=== PATIENT | female | born 1975 | race Two or more races ===

== ENCOUNTER 2025-02-20 16:07 | Inpatient (IN) | payer OTHER, SELFPAY ==
[~2025-02-20] VITALS: Ht 165.1 cm; Wt 84.3 kg
--- NOTE | 2025-02-20 17:16 | DVH ---
EXAM: CT HEAD WITHOUT CONTRAST INDICATION: aloc TECHNIQUE: CT of the head without intravenous contrast. Radiation Dose : 1. Head: CT Dose: CTDI volume is 56.19 mGy. Dose-length product is 995.01 mGy*cm The dose indicators for CT are the volume Computed Tomography (CT) Dose Index (CTDIvol) and the Dose Length Product (DLP), and are measured in units of mGy and mGy-cm, respectively. These indicators are not patient dose, but values generated from the CT scanner acquisition factors. The report includes radiation exposure data for exposures received during this examination. COMPARISON: None FINDINGS: There is no evidence of acute intracranial hemorrhage, extra-axial collection, mass effect, midline s hift, herniation or hydrocephalus. The ventricles, sulci and cisterns are age appropriate. The silva-white differentiation is intact. Patchy periventricular and subcortical white matter hypoattenuation is nonspecific but may be related to small vessel ischemic disease. The visualized paranasal sinuses and mastoid air cells are clear. The surrounding soft tissues and osseous structures are unremarkable. IMPRESSION: 1. No acute intracranial abnormality. Radiation optimization: All CT scans at this facility use at least one of these dose optimization ciara hniques: automated exposure control mA and/or kV adjustment per patient size (includes targeted exam s where dose is matched to clinical indication) or iterative reconstruction.
--- NOTE | 2025-02-20 17:17 | DVH ---
CHEST RADIOGRAPH Indication: loc Technique: Single frontal view of the chest was obtained COMPARISON: None FINDINGS: Lines and Tubes: None Lungs: Clear Pleura: No effusion. No pneumothorax. Cardiomediastinal contours: Unremarkable Bones: Unremarkable IMPRESSION: 1. No acute disease.
[2025-02-20 17:25] LABS: Basophils # (auto) 0 10 ^3/uL (0-0.2); Basophils % (auto) 0.3 % (0.0-2.0); Eosinophils # (auto) 0 10 ^3/uL (0-0.8); Eosinophils % (auto) 0.3 % (0.0-7.0); Hematocrit 38.4 % (36.0-46.0); Hemoglobin 13.1 g/dL (12.2-16.2); Lymphocytes # (auto) 1.8 10 ^3/uL (0.4-5.4); Lymphocytes % (auto) 14.2 % (10.0-50.0); Mean Corpuscular Hemoglobin 31.3 pg (28.0-32.0); Mean Corpuscular Hgb Conc. 34.1 g/dL (32.0-36.0); Mean Corpuscular Volume 91.6 fL (80.0-100.0); Monocytes # (auto) 0.8 10 ^3/uL (0-1.3); Monocytes % (auto) 6.4 % (0.0-12.0); Neutrophils # (auto) 9.9 10 ^3/uL (1.6-8.6); Neutrophils % (auto) 78.8 % (37.0-80.0); Platelet Count (auto) 237 10^3/uL (140-450); Red Blood Cells 4.19 10^6/uL (4.0-5.20); Red Cell Distribution Width 12.9 % (11.8-14.3); White Blood Cell 12.6 10^3/uL (4.4-10.8)
[2025-02-20 17:35] LABS: Alanine Aminotransferase 25 U/L (7-40); Albumin 4.3 g/dL (3.2-4.8); Alkaline Phosphatase 77 U/L (46-116); Anion Gap 8 (5-15); Aspartate Aminotransferase 13 U/L (13-40); BUN/Creatinine Ratio 22.5 (10.0-20.0); Bilirubin, Total 0.5 mg/dL (0.2-1.0); Blood Urea Nitrogen 16 mg/dL (9-23); Calcium 9.6 mg/dL (8.7-10.4); Carbon Dioxide 29 mmol/L (20-31); Chloride 105 mmol/L (98-107); Glucose 117 mg/dL (74-106); Potassium 2.9 mmol/L (3.5-5.1); Sodium 142 mmol/L (136-145); Total Protein 7.4 g/dL (5.7-8.2)
--- NOTE | 2025-02-20 18:50 | ED.PDOC ---
History of Present Illness HPI Comments 49-year-old female brought in by EMS. Patient was picked up from house with altered level consciousness. Per he was family members that were present at home, patient was complaining of abdominal pain and went to the bathroom. Family had not heard from the patient was so they went to check in the bathroom and patient was unconscious on the floor. Patient does not remember what happened other than wake up in the back of the ambulance. Initial blood sugar was 43 by EMS. Oral glucose given then D5 given bring glucose up to the 190s. Upon arrival patient is A&O x4. States she did eat lunch at approximate 12:00 p.m., an egg. States no prior history of diabetes. States she was noticed some intermittent dizziness and fatigue over the last three or four days. No excessive thirst no excessive sweating. Chief Complaint: Abdominal Pain Time Seen by MD: 16:30 Reviewed Notes: Nurses Notes Allergies: Coded Allergies: NO KNOWN ALLERGIES (Unverified , 02/20/25) Information Source: Patient Mode of Arrival: EMS Past Medical History PAST MEDICAL HISTORY: Denies Surgical History: Denies all surgeries WEIGHER AND MIXER History: No Pertinent WEIGHER AND MIXER History Constitutional: reports: fatigue, weakness; denies: chills, diaphoresis, fever, malaise, sweats, others EENTM: denies: blurred vision, double vision, ear bleeding, ear discharge, ear drainage, ear pain, ear ringing, eye pain, eye redness, hearing loss, mouth pain, mouth swelling, nasal discharge, nose bleeding, nose congestion, nose pain, photophobia, tearing, throat pain, throat swelling, voice changes, others Respiratory: denies: cough, hemoptysis, orthopnea, SOB at rest, shortness of breath, SOB with excertion, stridor, wheezing, others Cardiovascular: denies: chest pain, dizzy spells, diaphoresis, Dyspnea on exertion, edema, irregular heart beat, left arm pain, lightheadedness, palpitations, PND, syncope, others Gastrointestinal: denies: abdomen distended, abdominal pain, blood streaked bowels, constipated, diarrhea, dysphagia, difficulty swallowing, hematemesis, melena, nausea, poor appetite, poor fluid intake, rectal bleeding, rectal pain, vomiting, others Genitourinary: denies: abnormal vagina bleeding, burning, dyspareunia, dysuria, flank pain, frequency, hematuria, incontinence, pain, , vagina discharge, urgency, others Neurological: denies: dizziness, fainting, headache, left sided numbness, left sided weakness, numbness, paresthesia, pre-existing deficit, right sided numbn ess, right sided weakness, seizure, speech problems, tingling, tremors, weakness, others Musculoskeletal: denies: back pain, gout, joint pain, joint swelling, muscle pain, muscle stiffness, neck pain, others Integumetry: denies: bruises, change in color, change in hair/nails, dryness, laceration, lesions, lumps, rash, wounds, others Allergic/Immunocompromised: denies: Difficulty Healing, Frequent Infections, Hives, Itching, others Hematologic/Lymphatic: denies: anemia, blood clots, easy bleeding, easy bruising, swollen glands, others Endocrine: denies: excessive hunger, excessive sweating, excessive thirst, excessive urination, flushing, intolerance to cold, intolerance to heat, unexplained weight gain, unexplained weight loss, others Unable to Obtain due to: Altered Mental Status Physical Exam General Appearance: No Apparent Distress, Normal HEENT: Normal ENT Inspection, Pharynx Normal, TMs Normal Neck: Full Range of Motion, Non-Tender, Normal, Normal Inspection Respiratory: Chest Non-Tender, Lungs Clear, No Accessory Muscle Use, No Respiratory Distress, Normal Breath Sounds Cardiovascular: No Edema, No JVD, No Murmur, No Gallop, Normal Peripheral Pulses, Regular Rate/Rhythm Breast Exam: Deferred Gastrointestinal: No Organomegaly, Non Tender, No Pulsatile Mass, Normal Bowel Sounds, Soft Genitalia: Deferred Pelvic: Deferred Rectal: Deferred Extremities: No calf tenderness, Normal capillary refill, Normal inspection, Normal range of motion, Non-tender, No pedal edema Musculoskeletal : Apperance: Normal Neurologic: Alert, retail pharmacist II-XII nml as Tested, No Motor Deficits, Normal Affect, Normal Mood, No Sensory Deficits Cerebellar Function: Normal Reflexes: Normal Skin: Dry, Normal Color, Warm Lymphatic: No Adenopathy Was a procedure done? Was a procedure done?: No Differential Dx Considerations may include: Hypoglycemic event, CVA, TIA, metabolic encephalopathy, urosepsis, X-Ray, Labs, Meds, VS Vital Signs Date Time Temp Pulse Resp B/P (MAP) Pulse Ox O2 Delivery O2 Flow Rate FiO2 02/20/25 16:12 98.6 77 18 121/78 (92) 91 98.6 Lab Test 02/20/25 17:06 Range/Units White Blood Count 12.6 H 4.4-10.8 10^3/uL Red Blood Count 4.19 4.0-5.20 10^6/uL Hemoglobin 13.1 12.2-16.2 g/dL Hematocrit 38.4 36.0-46.0 % Mean Corpuscular Volume 91.6 80.0-100.0 fL Mean Corpuscular Hemoglobin 31.3 28.0-32.0 pg Mean Corpuscular Hemoglobin Concent 34.1 32.0-36.0 g/dL Red Cell Distribution Width 12.9 11.8-14.3 % Platelet Count 237 140-450 10^3/uL Mean Platelet Volume 8.6 6.9-10.8 fL Neutrophils (%) (Auto) 78.8 37.0-80.0 % Lymphocytes (%) (Auto) 14.2 10.0-50.0 % Monocytes (%) (Auto) 6.4 0.0-12.0 % Eosinophils (%) (Auto) 0.3 0.0-7.0 % Basophils (%) (Auto) 0.3 0.0-2.0 % Neutrophils # (Auto) 9.9 H 1.6-8.6 10 ^3/uL Lymphocytes # (Auto) 1.8 0.4-5.4 10 ^3/uL Monocytes # (Auto) 0.8 0-1.3 10 ^3/uL Eosinophils # (Auto) 0 0-0.8 10 ^3/uL Basophils # (Auto) 0 0-0.2 10 ^3/uL Nucleated Red Blood Cells 0.0 % Sodium Level 142 136-145 mmol/L Potassium Level 2.9 L 3.5-5.1 mmol/L Chloride Level 105 98-107 mmol/L Carbon Dioxide Level 29 20-31 mmol/L Anion Gap 8 5-15 Blood Urea Nitrogen 16 9-23 mg/dL Creatinine 0.71 0.550-1.02 mg/dL Glomerular Filtration Rate Calc 105 >90 mL/min BUN/Creatinine Ratio 22.5 H 10.0-20.0 Serum Glucose 117 H 74-106 mg/dL Calcium Level 9.6 8.7-10.4 mg/dL Total Bilirubin 0.5 0.2-1.0 mg/dL Aspartate Amino Transferase (AST) 13 13-40 U/L Alanine Aminotransferase (ALT) 25 7-40 U/L Alkaline Phosphatase 77 46-116 U/L Ammonia < 10 L 11-32 umol/L Total Protein 7.4 5.7-8.2 g/dL Albumin 4.3 3.2-4.8 g/dL X-Ray, Labs, Meds, VS Comment Imaging: X-rays and CT scans were reviewed and interpreted by this provider, imaging shows no fractures and no pathological disease. Pending radiology review. Laboratory: Labs reviewed and interpreted by this provider. Patient was have elevated white count. Pending urinalysis, patient was not given a urine sample yet Concerns of possible urinary tract infection leading to changes in blood sugar Concerns of possible new onset DM type 2. Low sugar to be monitored she was 3 hours Patient given IV hydration Patient has prior medical visits reviewed. Med reconciliation performed Vital signs reviewed Time of 1ST Reevaluation: 18:50 Reevaluation 1ST: Unchanged Patient Education/Counseling: Diagnosis, Treatment Family Education/Counseling: Diagnosis Departure 1 Departure Time of Disposition: 18:47 Impression: Primary Impression: Hypoglycemic event due to diabetes Additional Impressions: Metabolic encephalopathy Generalized weakness Syncopal episodes Qualified Codes: R55 - Syncope and collapse Disposition: ADMITTED INPATIENT Condition: Stable Discharged With: Self Critical Care Note Critical Care Time?: No Stability Stability form required: No Heart Score Heart Score: Heart Score Response (Comments) Value History N/A 0 EKG N/A 0 Age N/A 0 Risk Factors N/A 0 Troponin N/A 0 Total 0 MARCO ANTONIO PYLE February 20, 2025 18:50
[2025-02-20 19:44] LABS: Urine Bacteria FEW /hpf (None Seen); Urine Blood Negative /uL (Negative); Urine Clarity Turbid (Clear); Urine Color Yellow (Yellow); Urine Mucus FEW (None Seen); Urine Protein, UAD TRACE (Negative); Urine Specific Gravity 1.025 (1.001-1.035); Urine Squamous Epithelial Cell FEW /hpf (<5); Urine Urobilinogen Normal (Negative); Urine WBC 22 /HPF (0-5); Urine pH 5.5 (5.0-9.0)
[2025-02-20 19:53] LABS: Opiate Scree,Urine Neg (NEGATIVE)
[2025-02-20 19:58] LABS: Amphetamine Screen, Urine Neg (NEGATIVE); Barbiturate Scree,Urine Neg (NEGATIVE); Benzodiazephine Screen, Urine Neg (NEGATIVE); Cannabinoid Screen, Urine Neg (NEGATIVE); Cocaine Screen, Urine Neg (NEGATIVE); Phencyclidine Screen, Urine Neg (NEGATIVE)
[2025-02-20] MEDS ORDERED: ONDANSETRON HCL 4 MG/2 ML VIAL IV PRN (21:00)
[2025-02-20] MEDS ORDERED: POTASSIUM CHLORIDE 40 MEQ, LIDOCAINE 1% (LOCAL ANESTH.) 4 ML in SODIUM CHL 0.9% 250 ML IV ONE (21:00)
[2025-02-20 21:56] LABS: Free T3 3.49 pg/mL (2.3-4.2); Free T4 (Free Thyroxine) 1.27 ng/dL (0.89-1.76)
[2025-02-20 22:10] VITALS: PULSE 67; RESP 13; O2SAT 100
[2025-02-20] MEDS ORDERED: DEXTROSE (50%) 50ML SYRG IV PRN (22:15)
[2025-02-20] MEDS: POTASSIUM EFFERVESENT TAB 25 MEQ PO ONE (22:51)
[2025-02-20 22:58] VITALS: BP 117/73; PULSE 63; RESP 16; TEMP 98.4; O2SAT 98
--- NOTE | 2025-02-20 23:33 | DVHHP2 ---
History of Present Illness Reason for Visit: hypoglycemia History of Present Illness This is a 49-year-old female with PMHx of lumbar discopathy (diagnosed 3 years ago), who presented to the ED after being found unresponsive in the bathroom today. According to the patient and her daughter, she had been feeling generally unwell with myalgias and fatigue since Wednesday of last week. She had also been experiencing worsening low back pain, for which she recently visited a chiropractor. She reports taking only Advil, turmeric, and omega-3 supplements. She denies any history of diabetes and denies taking any hypoglycemic agents or other medications. She was found by her brother slumped back on the toilet, unresponsive. EMS recorded capillary glucose in the 59 mg/dL range. She was given D10, after which her glucose brown to 190 mg/dL. She denies chest pain, palpitations, or recent weight loss. She did note mild abdominal discomfort before the syncopal episode. PMHx: Lumbar discopathy (diagnosed 3 years ago) No known diabetes or endocrine disorders Anxiety/depression: venlafaxine and trazodone were prescribed in nov 2024 PSHx: None reported Medications: Advil PRN [place]-3 supplements Turmeric (as prescribed by chiropractor) Allergies: No known drug allergies Social History: Lives with family Denies tobacco, alcohol, or illicit drug use LABS & IMAGING: Glucose: 59 mg/dL on arrival Potassium: 2.9 Urinalysis: Glucose 3+, otherwise unremarkable Toxicology screen: Negative Head CT: Normal Chest X-ray: Normal CBC: Mild leukocytosis Review of Systems Review of Systems Constitutional: Positive for fatigue, myalgias GI: Mild abdominal discomfort before episode Neuro: Denies prior similar episodes, no confusion post-event : Denies dysuria, hematuria Other systems negative Allergies: Coded Allergies: NO KNOWN ALLERGIES (Unverified , 02/20/25) Medications Current Medications Medications Dose Ordered Sig/Juan Route Start Time Stop Time Status Last Admin Dose Admin Acetaminophen 650 mg Q6HP PRN PO 02/20/25 21:00 Ondansetron HCl 4 mg Q4HP PRN IV 02/20/25 21:00 Dextrose 50 ml UD PRN IV 02/20/25 22:15 Exam Vital Signs Vital Signs Date Time Temp Pulse Resp B/P (MAP) Pulse Ox O2 Delivery O2 Flow Rate FiO2 5/6/25 22:10 98.2 67 13 113/70 (84) 100 98.2 02/20/25 22:10 Room Air* 0 21 Exam PHYSICAL EXAM: General: Alert, oriented x3, NAD HEENT: PERRLA, no signs of trauma Neck: Supple, no lymphadenopathy Cardiac: RRR, no murmurs Lungs: Clear to auscultation bilaterally Abdomen: Soft, nontender, no rebound or guarding Neuro: Nonfocal, CN II-XII grossly intact, no focal deficits Extremities: No edema, good capillary refill Skin: No rashes or lesions Labs/Xrays Labs Test 02/20/25 22:28 02/20/25 21:23 02/20/25 19:20 02/20/25 17:06 Range/Units POC Glucose 87 70-106 mg/dl Hemoglobin A1c 5.3 <5.7 % A1C Thyroid Stimulating Hormone (TSH) 1.68 0.55-4.78 uIU/mL Free Thyroxine (T4) Calculated 1.27 0.89-1.76 ng/dL Free Triiodothyronine (T3) pg/mL 3.49 2.3-4.2 pg/mL Plasma/Serum Blood Alcohol < 3.0 <10 mg/dL Urine Color Yellow Yellow Urine Clarity Turbid H Clear Urine pH 5.5 5.0-9.0 Urine Specific [place] 1.025 1.001-1.035 Urine Protein Trace H Negative Urine Ketones Negative Negative Urine Blood Negative Negative /uL Urine Nitrite Negative Negative Urine Bilirubin Negative Negative Urine Urobilinogen Normal Negative mg/dL Urine Leukocyte Esterase Negative Negative /uL Urine RBC 1 0 - 4 /hpf Urine Microscopic WBC 22 H 0-5 /HPF Urine Squamous Epithelial Cells Few <5 /hpf Urine Calcium Oxalate Crystals Few None Seen Urine Bacteria Few H None Seen /hpf Urine Mucus Few None Seen Urine Glucose 3+ H Normal mg/dL Urine Opiates Screen Neg NEGATIVE Urine Fentanyl Screen Neg NEGATIVE Urine Barbiturates Screen Neg NEGATIVE Urine Phencyclidine Screen Neg NEGATIVE Urine Amphetamines Screen Neg NEGATIVE Urine Benzodiazepines Screen Neg NEGATIVE Urine Cocaine Screen Neg NEGATIVE Urine Cannabinoids Screen Neg NEGATIVE White Blood Count 12.6 H 4.4-10.8 10^3/uL Red Blood Count 4.19 4.0-5.20 10^6/uL Hemoglobin 13.1 12.2-16.2 g/dL Hematocrit 38.4 36.0-46.0 % Mean Corpuscular Volume 91.6 80.0-100.0 fL Mean Corpuscular Hemoglobin 31.3 28.0-32.0 pg Mean Corpuscular Hemoglobin Concent 34.1 32.0-36.0 g/dL Red Cell Distribution Width 12.9 11.8-14.3 % Platelet Count 237 140-450 10^3/uL Mean Platelet Volume 8.6 6.9-10.8 fL Neutrophils (%) (Auto) 78.8 37.0-80.0 % Lymphocytes (%) (Auto) 14.2 10.0-50.0 % Monocytes (%) (Auto) 6.4 0.0-12.0 % Eosinophils (%) (Auto) 0.3 0.0-7.0 % Basophils (%) (Auto) 0.3 0.0-2.0 % Neutrophils # (Auto) 9.9 H 1.6-8.6 10 ^3/uL Lymphocytes # (Auto) 1.8 0.4-5.4 10 ^3/uL Monocytes # (Auto) 0.8 0-1.3 10 ^3/uL Eosinophils # (Auto) 0 0-0.8 10 ^3/uL Basophils # (Auto) 0 0-0.2 10 ^3/uL Nucleated Red Blood Cells 0.0 % Sodium Level 142 136-145 mmol/L Potassium Level 2.9 L 3.5-5.1 mmol/L Chloride Level 105 98-107 mmol/L Carbon Dioxide Level 29 20-31 mmol/L Anion Gap 8 5-15 Blood Urea Nitrogen 16 9-23 mg/dL Creatinine 0.71 0.550-1.02 mg/dL Glomerular Filtration Rate Calc 105 >90 mL/min BUN/Creatinine Ratio 22.5 H 10.0-20.0 Serum Glucose 117 H 74-106 mg/dL Calcium Level 9.6 8.7-10.4 mg/dL Total Bilirubin 0.5 0.2-1.0 mg/dL Aspartate Amino Transferase (AST) 13 13-40 U/L Alanine Aminotransferase (ALT) 25 7-40 U/L Alkaline Phosphatase 77 46-116 U/L Ammonia < 10 L 11-32 umol/L Total Protein 7.4 5.7-8.2 g/dL Albumin 4.3 3.2-4.8 g/dL Assessment/Plan Assessment/Plan A 49-year-old female with no prior history of diabetes, presenting with an episode of hypoglycemia resulting in syncope. Workup notable for glucose in the 50s, hypokalemia, and glucosuria on UA despite no reported hyperglycemia or known diabetes. Head CT and chest X-ray were unremarkable. Negative tox screen. hba1c normal, pending c peptide, insulin and cortisol AM, normal thyroid function #Acute metabolic encephalopathy due to Hypoglycemia #Syncope due to Hypoglycemia #Adrenal insufficiency rule out #Incidental hypoglycemia (fasting or reactive) #Glucosuria #Leukocytosis #Hypokalemia Admit Med/surg Regular diet Dextrose IV PRN Potassium PO Pending c peptide, insulin and cortisol AM Case discussed with Dr Bonilla Full code Plan discussed with: Patient, Other My Orders Orders - JASPAL CHOUDHURY Procedure Category Date Status Time Admit ADMIT 02/20/25 Transmitted 20:50 Code Status CODE 02/20/25 Transmitted 20:50 Vital Signs BOGDAN 02/20/25 In Process 20:50 Review Orders With BOGDAN 02/20/25 In Process Adm.Md 20:50 Regular Diet DIET 02/21/25 Transmitted Breakfast Acetaminophen Tablet PHA 02/20/25 In Process (Tylenol Tablet) 21:00 Notify Md Of Changes BOGDAN 02/20/25 In Process From Base 20:50 Advance Directive BOGDAN 02/20/25 In Process 20:50 Patient Condition ORDERS 02/20/25 Transmitted 20:50 Allergies BOGDAN 02/20/25 In Process 20:50 Ondansetron Hcl PHA 02/20/25 In Process (Zofran) 21:00 Dextrose 50% Syringe PHA 02/20/25 In Process 22:15 Date of Service: February 20, 2025 Billing Provider: CARIE BONILLA MD Common Visit Codes: [id number] INP/OBS CARE (HIGH) Secondary Visit Codes: [id number] CARE PLAN 30 MINUTES JASPAL CHOUDHURY February 20, 2025 23:33
[2025-02-21] VITALS (9 sets, daily range): BP systolic 107–130; BP diastolic 63–93; PULSE 63–83; RESP 16–20; TEMP 97–98.7; O2SAT 93–100
[2025-02-21] MEDS ORDERED: DEXTROSE (50%) 50ML SYRG IV PRN (00:15)
[2025-02-21] MEDS: ACCU-CHEK COMFORT CURVE STRIP VI SCH (05:01)
[2025-02-21 06:17] LABS: Basophils # (auto) 0.1 10 ^3/uL (0-0.2); Basophils % (auto) 0.8 % (0.0-2.0); Eosinophils # (auto) 0.1 10 ^3/uL (0-0.8); Eosinophils % (auto) 0.8 % (0.0-7.0); Hematocrit 36.3 % (36.0-46.0); Hemoglobin 12.4 g/dL (12.2-16.2); Lymphocytes # (auto) 2.7 10 ^3/uL (0.4-5.4); Lymphocytes % (auto) 34.9 % (10.0-50.0); Mean Corpuscular Hemoglobin 30.9 pg (28.0-32.0); Mean Corpuscular Hgb Conc. 34.1 g/dL (32.0-36.0); Mean Corpuscular Volume 90.6 fL (80.0-100.0); Monocytes # (auto) 0.5 10 ^3/uL (0-1.3); Neutrophils # (auto) 4.4 10 ^3/uL (1.6-8.6); Neutrophils % (auto) 57.5 % (37.0-80.0); Nucleated Red Blood Cells % 0.1 %; Platelet Count (auto) 215 10^3/uL (140-450); Red Blood Cells 4.01 10^6/uL (4.0-5.20); Red Cell Distribution Width 13.3 % (11.8-14.3); White Blood Cell 7.6 10^3/uL (4.4-10.8)
[2025-02-21 06:26] LABS: Alanine Aminotransferase 22 U/L (7-40); Alkaline Phosphatase 63 U/L (46-116); Anion Gap 7 (5-15); BUN/Creatinine Ratio 16.9 (10.0-20.0); Blood Urea Nitrogen 10 mg/dL (9-23); Carbon Dioxide 27 mmol/L (20-31); Glucose 97 mg/dL (74-106); Sodium 142 mmol/L (136-145); Total Protein 6.7 g/dL (5.7-8.2)
[2025-02-21 06:27] LABS: Albumin 3.9 g/dL (3.2-4.8); Bilirubin, Total 0.6 mg/dL (0.2-1.0)
[2025-02-21 06:28] LABS: Aspartate Aminotransferase 11 U/L (13-40); Calcium 8.6 mg/dL (8.7-10.4); Chloride 108 mmol/L (98-107); Potassium 3.5 mmol/L (3.5-5.1)
[2025-02-21] MEDS: cefTRIAXone 1GM/50ML D5W 50 ML IV SCH (10:40)
--- NOTE | 2025-02-21 11:16 | DVHPNRES ---
Progress Note Date Seen: February 21, 2025 Resident Creating Document: WILL TEJEDA RESIDENT Medical Necessity Reason Pt with a Central, PICC or Fol: No Subjective Review of Systems Everardo Guthrie a 49-year-old female with PMHx of lumbar discopathy (diagnosed 3 years ago), who presented to the ED after being found unresponsive in the bathroom today. According to the patient and her daughter, she had been feeling generally unwell with myalgias and fatigue since Wednesday of last week. She had also been experiencing worsening low back pain, for which she recently visited a chiropractor. She reports taking only Advil, turmeric, and omega-3 supplements. She denies any history of diabetes and denies taking any hypoglycemic agents or other medications. She was found by her brother slumped back on the toilet, unresponsive. EMS recorded capillary glucose in the 59 mg/dL range. She was given D10, after which her glucose brown to 190 mg/dL. She denies chest pain, palpitations, or recent weight loss. She did note mild abdominal discomfort before the syncopal episode. PMH: Lumbar radiculopathy, anxiety, depression PSH: Denies Family history: Noncontributory Personal history: Lives with family. Denies smoking, alcohol and other drug abuse Allergies: No known allergies Home medications: Advil p.r.n., omega-3 supplements, turmeric Patient seen and examined at the bedside. Patient reported mild improvement in her symptoms, reported no new complaints at this point. Head CT showed no acute changes. Patient was kept on telemetry. Orthostatic vitals. Objective vital signs Vital Sign Date Time Temp Pulse Resp B/P (MAP) Pulse Ox O2 Delivery O2 Flow Rate FiO2 02/21/25 09:00 98.7 63 18 107/63 (78) 93 98.7 02/20/25 22:10 Room Air* 0 21 Total Intake and Output 02/20/25 02/20/25 02/21/25 15:00 23:00 07:00 Intake Total 100 ml Balance 100 ml medications Current Medications Medications Dose Ordered Sig/Juan Route Start Time Stop Time Status Last Admin Dose Admin Acetaminophen 650 mg Q6HP PRN PO 02/20/25 21:00 Ondansetron HCl 4 mg Q4HP PRN IV 02/20/25 21:00 Dextrose 50 ml UD PRN IV 02/20/25 22:15 Diagnostic Test (Pha) 1 strip Q6HR 02/21/25 04:00 02/21/25 05:01 1 STRIP Dextrose 50 ml UD PRN IV 02/21/25 00:15 Ceftriaxone Sodium 50 ml @ 100 mls/hr DAILY@09 IV 02/21/25 09:00 Examination Pt is lying on bed General Appearance: Alert, Oriented X3, Cooperative, Not in acute distress HEENT: Atraumatic, Mucous membranes moist/pink Respiratory: Clear to auscultation, Normal air movement, No added sounds Cardiovascular: Regular rate, Normal S1, Normal S2, No murmurs Abdominal: Active bowel sounds, Soft, no distention, no tenderness Extremities: No edema, Normal pulses, No tenderness/swelling Skin: No Significant rash, except past surgical scars Neuro: Normal speech, sensorimotor deficits none Psych/Mental Status: Mental status NL, Mood NL Nurse was there as sharperone during examination laboratory and microbiology Laboratory Tests 02/21/25 05:00 Test 02/21/25 05:00 Range/Units Serum Glucose 97 74-106 mg/dL Labs and/or images reviewed: Labs reviewed by me, Image(s) reviewed by me Problem List/Assessment/Plan Problem List/Assessment/Plan # Acute metabolic encephalopathy due to Hypoglycemia # Syncope due to Hypoglycemia # Adrenal insufficiency ruled out # Incidental hypoglycemia (fasting or reactive) # Glucosuria # Leukocytosis # Hypokalemia - Dextrose IV PRN - Potassium PO - Pending c peptide, insulin - telemetry - EKG - orthostatic vitals - UDS negative - head CT showed no acute changes # Acute complicated UTI - evident on urinalysis - ordered urine bacterial culture - currently giving Rocephin No GI or VTE PPX needed at this time Regular diet Goals of care discussed with the patient for more than 29 minutes: Full code status Case discussed with Dr. Mitchell, patient and nurse Plan discussed with: Patient My Orders My Orders Orders - WILL TEJEDA RESIDENT Procedure Category Date Status Time Ceftriaxone 1gm/50ml PHA 02/21/25 In Process D5w (Rocephin) 09:00 Transfer Orders XFER 02/21/25 Transmitted 10:58 Orthostatic Vital ORDERS 02/21/25 Transmitted Signs 10:58 Electrocardigram EKG 02/21/25 Logged 10:59 Date of Service: February 21, 2025 Billing Provider: MADHAVI DIAZ MD Common Visit Codes: [id number] INP/OBS CARE(HIGH) WILL TEJEDA RESIDENT February 21, 2025 11:16 MADHAVI DIAZ MD March 04, 2025 02:32
[2025-02-21] MEDS: SODIUM CHLORIDE 0.9% 1,000 ML IV ONE (20:37)
[2025-02-21] MEDS: ACETAMINOPHEN 325 MG TAB PO PRN (20:38)
[2025-02-22] VITALS (7 sets, daily range): BP systolic 103–120; BP diastolic 61–78; PULSE 65–75; RESP 17–20; TEMP 36.9; O2SAT 96–100
[2025-02-22] MEDS: POTASSIUM EFFERVESENT TAB 25 MEQ PO ONE (14:00)
--- NOTE | 2025-02-22 14:32 | DVHSR ---
APPROVED REPORT EXAM: Two-dimensional and M-mode echocardiogram with Doppler, color Doppler and Bubble Study. Blood Pressure: 118/78 mmHg INDICATION R/O structural heart disease RISK FACTORS Height: 5'5, Weight: 185 DIMENSIONS LVDd4.7 (3.8-5.7cm)LA (2D)5.1 (1.9-4.0cm)Aortic Root2.9 (2.0-3.7cm) LVDs3.3 (2.5-4.0cm)LA (MM) (1.9-4.0cm)Aortic Cusp Exc1.8 (1.5-2.0cm) EF (%) 55.0 (55-70%)Rt. Atrium3.1 (1.9-4.0cm)Asc. Aorta cm IVSd0.8 (0.7-1.1cm)RV (D)4.0 (1.8-2.4cm) PWd0.9 (0.7-1.1cm) Mitral Valve MitralMitral Stenosis E wave0.93m/sMV Mean GR.mmHg A wave0.75m/sMV Peak GR.mmHg E/A ratio1.22D MVAcm2 DECEL [id number] 1/2 Timems Aortic Valve Aortic ValveAortic Stenosis V10.98m/Ricardo Mean GR.5mmHg V21.43m/Ricardo Peak GR.8mmHg LVOT Diameter2.0 (1.8-2.4cm)Doppler AVA2.15cm2 Pulmonic Valve V21.13m/s Tricuspid Valve TR Velocity2.44m/s [id number] Other Information Technically limited study due to body habitus. W/ BUBBLE Conclusion lvef 60% by visual estimate normal rv function left atrium enlarged no severe valve abnormalities noted
--- NOTE | 2025-02-22 15:12 | ECG ---
[facility] Test Date: 2025-02-22 Test Time: 14:08:42 Pat Name: JASPAL NAQVI Department: Room: [facility]6T B Gender: F [employer]: : 1975 Requested By: WILL TEJEDA Order Number: [id number] Reading MD: Moise Ro Measurements Intervals [place] Rate: 67 P: 72 DE: 141 QRS: 68 QRSD: 99 T: 21 QT: 394 QTc: 416 Interpretive Statements Sinus rhythm Probable left ventricular hypertrophy Electronically Signed On 02-22-2025 20:09:39 PDT by Moise Ro Please click the below link to view image of tracing.
[2025-02-22] MEDS ORDERED: CEPH250C PO (16:00)
--- NOTE | 2025-02-22 16:02 | DVHDSRES ---
Discharge Summary Date of Admission Resident Creating Document: WILL TEJEDA RESIDENT February 20, 2025 at 20:50 Date of Discharge: February 22, 2025 Admitting Diagnosis Hypoglycemia Labs/Diagnostic Data: Laboratory Results Test 02/22/25 12:53 02/22/25 12:10 02/21/25 08:38 02/21/25 05:00 Troponin I High Sensitivity < 3 ng/L (</=34) POC Glucose 99 mg/dl (70-106) Cortisol AM Sample 13.54 ug/dL (5.27-22.45) White Blood Count 7.6 10^3/uL (4.4-10.8) Red Blood Count 4.01 10^6/uL (4.0-5.20) Hemoglobin 12.4 g/dL (12.2-16.2) Hematocrit 36.3 % (36.0-46.0) Mean Corpuscular Volume 90.6 fL (80.0-100.0) Mean Corpuscular Hemoglobin 30.9 pg (28.0-32.0) Mean Corpuscular Hemoglobin Concent 34.1 g/dL (32.0-36.0) Red Cell Distribution Width 13.3 % (11.8-14.3) Platelet Count 215 10^3/uL (140-450) Mean Platelet Volume 9.1 fL (6.9-10.8) Neutrophils (%) (Auto) 57.5 % (37.0-80.0) Lymphocytes (%) (Auto) 34.9 % (10.0-50.0) Monocytes (%) (Auto) 6.0 % (0.0-12.0) Eosinophils (%) (Auto) 0.8 % (0.0-7.0) Basophils (%) (Auto) 0.8 % (0.0-2.0) Neutrophils # (Auto) 4.4 10 ^3/uL (1.6-8.6) Lymphocytes # (Auto) 2.7 10 ^3/uL (0.4-5.4) Monocytes # (Auto) 0.5 10 ^3/uL (0-1.3) Eosinophils # (Auto) 0.1 10 ^3/uL (0-0.8) Basophils # (Auto) 0.1 10 ^3/uL (0-0.2) Nucleated Red Blood Cells 0.1 % Sodium Level 142 mmol/L (136-145) Potassium Level 3.5 mmol/L (3.5-5.1) Chloride Level 108 mmol/L (98-107) Carbon Dioxide Level 27 mmol/L (20-31) Anion Gap 7 (5-15) Blood Urea Nitrogen 10 mg/dL (9-23) Creatinine 0.59 mg/dL (0.550-1.02) Glomerular Filtration Rate Calc 112 mL/min (>90) BUN/Creatinine Ratio 16.9 (10.0-20.0) Serum Glucose 97 mg/dL (74-106) Calcium Level 8.6 mg/dL (8.7-10.4) Total Bilirubin 0.6 mg/dL (0.2-1.0) Aspartate Amino Transferase (AST) 11 U/L (13-40) Alanine Aminotransferase (ALT) 22 U/L (7-40) Alkaline Phosphatase 63 U/L (46-116) Total Protein 6.7 g/dL (5.7-8.2) Albumin 3.9 g/dL (3.2-4.8) Beta-Hydroxybutyric Acid 0.089 mmol/L (< 0.4) Test 02/20/25 21:23 02/20/25 19:20 02/20/25 17:06 Hemoglobin A1c 5.3 % A1C (<5.7) Insulin Level 8.6 uIU/mL (2.6-24.9) C-Peptide 2.2 ng/mL (1.1-4.4) Thyroid Stimulating Hormone (TSH) 1.68 uIU/mL (0.55-4.78) Free Thyroxine (T4) Calculated 1.27 ng/dL (0.89-1.76) Free Triiodothyronine (T3) pg/mL 3.49 pg/mL (2.3-4.2) Plasma/Serum Blood Alcohol < 3.0 mg/dL (<10) Urine Color Yellow (Yellow) Urine Clarity Turbid (Clear) Urine pH 5.5 (5.0-9.0) Urine Specific [place] 1.025 (1.001-1.035) Urine Protein Trace (Negative) Urine Ketones Negative (Negative) Urine Blood Negative /uL (Negative) Urine Nitrite Negative (Negative) Urine Bilirubin Negative (Negative) Urine Urobilinogen Normal mg/dL (Negative) Urine Leukocyte Esterase Negative /uL (Negative) Urine RBC 1 /hpf (0 - 4) Urine Microscopic WBC 22 /HPF (0-5) Urine Squamous Epithelial Cells Few /hpf (<5) Urine Calcium Oxalate Crystals Few (None Seen) Urine Bacteria Few /hpf (None Seen) Urine Mucus Few (None Seen) Urine Glucose 3+ mg/dL (Normal) Urine Opiates Screen Neg (NEGATIVE) Urine Fentanyl Screen Neg (NEGATIVE) Urine Barbiturates Screen Neg (NEGATIVE) Urine Phencyclidine Screen Neg (NEGATIVE) Urine Amphetamines Screen Neg (NEGATIVE) Urine Benzodiazepines Screen Neg (NEGATIVE) Urine Cocaine Screen Neg (NEGATIVE) Urine Cannabinoids Screen Neg (NEGATIVE) Ammonia < 10 umol/L (11-32) Other Laboratory Tests 02/21/25 05:00 Brief Hx & Hospital Course: Cher Guthrie Is a 49-year-old female with PMHx of lumbar discopathy (diagnosed 3 years ago), who presented to the ED after being found unresponsive in the bathroom today. According to the patient and her daughter, she had been feeling generally unwell with myalgias and fatigue since Wednesday of last week. She had also been experiencing worsening low back pain, for which she recently visited a chiropractor. She reports taking only Advil, turmeric, and omega-3 supplements. She denies any history of diabetes and denies taking any hypoglycemic agents or other medications. She was found by her brother slumped back on the toilet, unresponsive. EMS recorded capillary glucose in the 59 mg/dL range. She was given D10, after which her glucose brown to 190 mg/dL. She denies chest pain, palpitations, or recent weight loss. She did note mild abdominal discomfort before the syncopal episode. Patient required hospital admission for further evaluation and management of hypoglycemia and syncope. Her 2D echo other showed no acute changes. Patient was continuously monitored on telemetry. Orthostatic vitals negative, ordered certain labs like AM cotisol negative, C-peptide, insulin which is pending, UDS was negative. Patient was on dextrose IV. . Due to diuretic in bed especially present on potassium p.o.. Patient found to have UTI, started on Rocephin. Ordered echocardiogram which showed normal LVEF and no wall abnormalities. EKG showed no acute changes. Troponins were negative. patient condition was improved, hemodynamically stable and his condition to be discharged home. Patient was advice reviewed healthy lifestyle modification including diet and exercise and to follow up with PCP and follow up with us in [place] clinic. Pt is lying on bed General Appearance: Alert, Oriented X3, Cooperative, Not in acute distress HEENT: Atraumatic, Mucous membranes moist/pink Respiratory: Clear to auscultation, Normal air movement, No added sounds Cardiovascular: Regular rate, Normal S1, Normal S2, No murmurs Abdominal: Active bowel sounds, Soft, no distention, no tenderness Extremities: No edema, Normal pulses, No tenderness/swelling Skin: No Significant rash, except past surgical scars Neuro: Normal speech, sensorimotor deficits none Psych/Mental Status: Mental status NL, Mood NL Nurse was there as sharperone during examination Operations or Procedures CT HEAD WITHOUT CONTRAST No acute intracranial abnormality. Condition at Discharge: Stable Final Diagnosis/Problems List # Acute metabolic encephalopathy due to Hypoglycemia # Syncope due to Hypoglycemia # Adrenal insufficiency ruled out # Incidental hypoglycemia (fasting or reactive) # Glucosuria # Leukocytosis # Hypokalemia # Acute complicated UTI Discharge Disposition: Home Discharge Instruct/Medications Diet: Regular Activity: No Restrictions, As Tolerated Follow Up/Referral: PCP Discharge Clinic Medications: Keflex 500 mg p.o. b.i.d. for UTI Discharge Statement: "Patient was advised to return to the ER or call 911 if any headaches, dizziness, shortness of breath, chest pain, abdominal pain, bleeding, fevers, or worsening of medical condition. Patient was counseled about treatment plan, medications, possible side effects, patient�verbalized understanding. All questions were answered to the best of my ability. This discharge took greater then 30 minutes in planning, reviewing documentation, counseling the patient, and discussing with other team members." ASSESSMENT ASSESSMENT Assessment # Acute metabolic encephalopathy due to Hypoglycemia # Syncope due to Hypoglycemia # Adrenal insufficiency ruled out # Incidental hypoglycemia (fasting or reactive) # Glucosuria # Leukocytosis # Hypokalemia # Acute complicated UTI WILL TEJEDA RESIDENT February 22, 2025 16:02
[2025-02-22 18:05] LABS: Urine Bacteria MANY /hpf (None Seen); Urine Blood Negative /uL (Negative); Urine Clarity Turbid (Clear); Urine Color Colorless (Yellow); Urine Mucus FEW (None Seen); Urine Protein, UAD Negative (Negative); Urine Specific Gravity 1.008 (1.001-1.035); Urine Squamous Epithelial Cell MANY /hpf (<5); Urine Urobilinogen Normal (Negative); Urine WBC 2 /HPF (0-5)
== END 2025-02-22 18:25 | disposition home or self-care (01) | DRG 637 ==
LOC: EDBD 16:07 → ER 16:07 → OVERFLOW 20:50 → WEST WING 23:39 → TELE-WESTW 02-21 11:22
PROVIDERS: ADMIT Student in an Organized Health Care Education/Training Program; ATTEND Student in an Organized Health Care Education/Training Program
DX: E11.649 Type 2 diabetes mellitus with hypoglycemia without coma (principal); G93.41 Metabolic encephalopathy; N39.0 Urinary tract infection, site not specified; E87.6 Hypokalemia; D72.829 Elevated white blood cell count, unspecified; F32.A Depression, unspecified; F41.9 Anxiety disorder, unspecified; Z79.899 Other long term (current) drug therapy
CPT/HCPCS: 36415; 70450; 71045; 80053; 80307; 80320; 81001; 82010; 82140; 82533; 82962; 83036; 83525; 84439; 84443; 84481; 84484; 85025; 93005; 93306; G0378; J2003